=== PATIENT | male | born 1950 | race Caucasian/White ===

== ENCOUNTER 2018-03-25 08:29 | Day surgery (SDC) | payer MEDICARE ==
[2018-03-24 17:42] VITALS: BMI 24.3
[~2018-03-25 08:29] MED LIST: Fluorouracil 100 MG, Enoxaparin Sodium 25 MG, EPINEPHrine 0.3 MG in Ophthalmic Irrigati... IVPB SCH
[2018-03-25] MEDS ORDERED: Cyclopentolate 1% Opth Drop 2 ML BOT ONE (09:16)
[2018-03-25] MEDS ORDERED: Phenylephrine 2.5% Ophth Soln 5 ML BOT ONE (09:16)
[2018-03-25] MEDS ORDERED: Midazolam HCl 2 mg/2 ml Vial ONE (11:40)
[2018-03-25] MEDS ORDERED: Lidocaine 4% PF 5 ML AMP ONE (12:04)
[2018-03-25] MEDS ORDERED: PROPOFOL 200 MG/20 ML VIAL ONE (12:04)
[2018-03-25] MEDS ORDERED: Maxitrol 0.1% Opth Oint 3.5 GM TUBE ONE (12:04)
[2018-03-25] MEDS ORDERED: Lidocaine 1% PF 5 ML VIAL ONE (12:04)
[2018-03-25] MEDS ORDERED: Triamcinolone 40 MG/ML VIAL ONE (12:04)
[2018-03-25] MEDS ORDERED: CEFAZOLIN 1 GM VIAL ONE (12:04)
[2018-03-25] MEDS ORDERED: Bupivacaine 0.75% 10 ML AMP ONE (12:04)
--- NOTE | 2018-03-25 20:42 | OP ---
DATE OF PROCEDURE: 03/25/2018 PREOPERATIVE DIAGNOSIS: Rhegmatogenous retinal detachment, left eye. POSTOPERATIVE DIAGNOSIS: Rhegmatogenous retinal detachment, left eye. PROCEDURES PERFORMED: Pars plana vitrectomy and retinal detachment repair, left eye. ANESTHESIA: Local with monitored anesthesia care. DESCRIPTION OF PROCEDURE: The patient was identified in the preoperative holding area. Appropriate informed consent for the planned surgical procedure on the left eye had been obtained. The patient was transported to the operative suite and appropriate cardiopulmonary monitoring established. Local anesthesia was obtained using retrobulbar modified Van Lint lid block using 50:50 mixture of 4% lidocaine and 0.75% bupivacaine. The patient was prepped and draped in the usual sterile manner for ophthalmic surgery in the left eye. Lid speculum was placed in the left eye. A 25-gauge trocar was placed through the conjunctiva and sclera superotemporally, inferotemporally, and superonasally. Infusion line was placed inferotemporally. Light pipe vitreous cutter was inserted into the eye. Core vitrectomy was performed. A vitreous base was trimmed back to 360 degrees using a wide-field viewing system. Breaks were found at the 2 o'clock and 5 o'clock positions. Posterior drained retinotomy was created along the 2 o'clock meridian. Complete air-fluid exchange was performed. Ten minutes were being allowed for fluid to drain posteriorly. A 360 laser was placed using Endolaser delivery device with special attention to the breaks. A 28% sulfur hexafluoride gas was infused into the eye. Superior sclerotomy was suture closed. Retrobulbar Kenalog and subconjunctival Ancef were placed. Antibiotic ointment was placed. The eye was patched and shielded. The patient was taken to postoperative recovery unit in good condition, having suffered no immediate perioperative complications. The patient was instructed to keep the patch and shield on, position the left side down. Followup appointment with Dr. Person. Job ID: [id number]
== END 2018-03-25 13:40 | disposition home or self-care (01) ==
LOC: SDC 08:29
PROVIDERS: ATTEND Ophthalmology Retina Specialist
PROC: 08T53ZZ Resection of Left Vitreous, Percutaneous Approach (ICD-10-PCS; principal; 2018-03-25)
DX: H33.002 Unspecified retinal detachment with retinal break, left eye (principal); Z79.899 Other long term (current) drug therapy
CPT/HCPCS: 67025; J0171; J0690; J1650; J2001; J2250; J2704; J3301; J3490; J9190

== ENCOUNTER 2024-11-23 08:56 | Outpatient (CLI) | payer MEDICARE | END 2024-11-23 08:57 | disposition home or self-care (01) | LOC: SCSMRI 08:56 | PROVIDERS: ATTEND Orthopaedic Surgery | DX: M48.062 Spinal stenosis, lumbar region with neurogenic claudication (principal); M41.9 Scoliosis, unspecified; M47.816 Spondylosis without myelopathy or radiculopathy, lumbar region; M47.817 Spondylosis without myelopathy or radiculopathy, lumbosacral region; M48.07 Spinal stenosis, lumbosacral region | CPT/HCPCS: 72148 ==